=== PATIENT | male | born 1970 | race Caucasian/White ===

== ENCOUNTER 2022-10-12 16:35 | Emergency (ER) | payer OTHER ==
[~2022-10-12] VITALS: Ht 185.4 cm; Wt 90.7 kg
[2022-10-12 16:46] VITALS: BP_SYST 131
--- NOTE | 2022-10-12 16:46 | NUR ---
Patient to ER bed H1 to gown for evaluation. Side rails up.
--- NOTE | 2022-10-12 16:48 | NUR ---
Pt brought by self, Varsha [id number], pt presents to ER with L neck, L arm pain x 2 months, denies recent trauma, skin pink and warm , cap refill <3, VSS respirations even and unlabored.
--- NOTE | 2022-10-12 16:55 | NUR ---
Dr Childs evaluating patient at bedside
[2022-10-12] MEDS ORDERED: NAPR-1172 PO (18:22)
[2022-10-12 18:31] VITALS: BP_SYST 131
--- NOTE | 2022-10-12 18:32 | NUR ---
Patient given written and verbal discharge instructions and verbalizes understanding. ER MD discussed with patient the results and treatment provided. Patient in stable condition. ID arm band removed. Rx of Naprosyn given. Patient educated on pain management and to follow up with PMD. Pain Scale 2/10 Opportunity for questions provided and answered. Medication side effect fact sheet provided.
== END 2022-10-12 18:31 | disposition home or self-care (01) ==
LOC: SED 16:35
DX: M50.021 Cervical disc disorder at C4-C5 level with myelopathy (principal); M79.602 Pain in left arm; Z79.899 Other long term (current) drug therapy
CPT/HCPCS: 72125-TC; 76376; 99284